=== PATIENT | male | born 1965 | race Caucasian/White ===

== ENCOUNTER 2021-01-17 14:25 | Emergency (ER) | payer BC ==
[2021-01-17] MEDS: Ketorolac 30 MG/ML SDV IVPUSH ONE (15:24)
--- NOTE | 2021-01-17 15:34 | EDM.PDOC ---
ED HPI GENERAL MEDICAL PROBLEM - General Chief Complaint: Back Pain or Injury Stated Complaint: pain fell from ladder Time Seen by Provider: 01/17/21 14:56 Source of Information: Reports: Patient History Limitations: Reports: No Limitations - History of Present Illness INITIAL COMMENTS - FREE TEXT/NARRATIVE: 55-year-old male presents to the ED complaining of dizzy lightheadedness, falls, neck pain, back pain. Patient had a fall from a ladder approximately 7 feet up on Monday, patient states there was no loss of consciousness. But he did see stars. Followed by nausea. Patient believes he was on the ground for approximately 4 to 5 minutes. He had difficulty in standing due to dizziness/rib pain which he rates as an 8/10 on the pain scale. Patient is positive for the following: Increasing sleep, inability to walk more than 20 feet without getting dizzy lightheaded, multiple falls controlled, numbness and tingling in his right hand, pain in his right wrist. Negative for: Shortness of breath, headache, blurred vision, diarrhea/constipation, blood in the stool. 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 Denies: Ear Pain, Hearing Loss, Vision Change Respiratory: Reports: Other (Extreme pain on the left side posterior chest wall when patient moves, coughs, sneezes.) Cardiovascular: Reports: Chest Pain (Chest wall pain) Endocrine: Reports: No Symptoms GI/Abdominal: Reports: Abdominal Pain, Nausea, Vomiting : Reports: No Symptoms Musculoskeletal: Reports: Back Pain, Other (Numbness and tingling right hand left hand/wrist is sore) Skin: Reports: No Symptoms, Other Neurological: Reports: Dizziness, Paresthesia (Right hand), Tingling (Right hand CK yes please okay) Psychiatric: Reports: No Symptoms Hematologic/Lymphatic: Reports: No Symptoms Immunologic: Reports: No Symptoms ED EXAM, UPPER BACK/NECK PAIN - Physical Exam Exam: See Below Text/Narrative:: 55-year-old male lying semi-Fowlers in ED stretcher trauma bay 1. Patient is alert and oriented 3/3 GCS 4 5 6, skin warm, dry, nonpallor, dirty/unhygienic. Patient speaking in full sentences. Exam Limited By: No Limitations General Appearance: Alert, WD/WN, Moderate Distress Eye Exam: Bilateral Eye: EOMI, Normal Inspection, PERRL Ears Exam: Normal External Exam, Hearing Grossly Normal, Other (Negative for discharge, jewell sign) Nose Exam: Normal Inspection, No Blood Throat/Mouth Exam: Normal Inspection, Normal Lips, Normal Oropharynx, Normal Voice, No Airway Compromise, Dental Decay. No: Normal Teeth (Extremely poor dentition) Head Exam: Atraumatic, Normocephalic, Other (No pain on palpation, no deformity) Neck Exam: Limited Range of Motion, Spinous Processes Tender (Approximately the C6-C7), Stiff Neck, Tenderness, Tender Midline. 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) Neurologic: instructor nurse II-XII nml As Tested, No Motor/Sensory Deficits, Alert, Normal Mood/Affect, Oriented x 3 Psychiatric: Normal Affect, Normal Mood Skin Exam: Other (See above) #1 Interpretation EKG Date: 01/17/21 Course - Vital Signs Last Recorded V/S: Last Vital Signs Temp 97 F 01/17/21 17:55 Pulse 95 01/17/21 18:02 Resp 18 01/17/21 17:55 BP 118/69 01/17/21 18:02 Pulse Ox 98 01/17/21 17:55 - Orders/Labs/Meds Labs: Laboratory Tests 01/17/21 01/17/21 01/17/21 Range/Units 15:20 16:09 16:10 WBC 10.8 (4.0-11.0) K/uL RBC 3.20 L (4.50-6.50) M/uL Hgb 10.5 L (13.0-18.0) g/dL Hct 29.9 L (40.0-54.0) % MCV 93 (76-96) fL MCH 32.8 H (27.0-32.0) pg MCHC 35.1 H (31.0-35.0) g/dL RDW 11.8 (11.0-16.0) % Plt Count 323 (150-400) K/uL MPV 9.9 (6.0-10.0) fL Neut % (Auto) 76.3 H (45.0-70.0) % Lymph % (Auto) 14.6 L (20.0-40.0) % [place] % (Auto) 7.4 (3.0-10.0) % Eos % (Auto) 1.2 (1.0-5.0) % Baso % (Auto) 0.5 (0.0-0.5) % Neut # (Auto) 8.24 H (2.00-7.50) K/uL Lymph # (Auto) 1.57 (1.50-4.00) K/uL [place] # (Auto) 0.80 (0.20-0.80) K/uL Eos # (Auto) 0.13 (0.04-0.40) K/uL Baso # (Auto) 0.05 (0.02-0.10) K/uL Sodium 135 L (136-145) mmol/L Potassium 4.9 (3.5-5.1) mmol/L Chloride 99 (98-107) mmol/L Carbon Dioxide 30.2 (21.0-32.0) mmol/L Anion Gap 10.7 (5.0-15.0) mmol/L BUN 33 H (8-26) mg/dL Creatinine 1.15 (0.70-1.30) mg/dL Est Cr Clr Drug Dosing TNP Estimated GFR (MDRD) > 60 (>60) MLS/MIN BUN/Creatinine Ratio 28.7 H (6-25) Glucose 375 H (74-100) mg/dL Calcium 9.1 (8.5-10.1) mg/dL Total Bilirubin 1.7 H (0.0-1.0) mg/dL AST 12 L (15-37) U/L ALT 23 (12-78) U/L Alkaline Phosphatase 90 (46-116) U/L Creatine Kinase 153 (21-232) U/L Total Protein 6.9 (6.4-8.2) g/dL Albumin 3.7 (3.4-5.0) g/dL Globulin 3.2 (2.2-4.2) g/dL Albumin/Globulin Ratio 1.2 (0.8-2.0) SARS-CoV-2 RNA (KYLEIGH) (NEGATIVE) Blood Type O POSITIVE Gel Antibody Screen Negative 01/17/21 Range/Units 16:55 WBC (4.0-11.0) K/uL RBC (4.50-6.50) M/uL Hgb (13.0-18.0) g/dL Hct (40.0-54.0) % MCV (76-96) fL MCH (27.0-32.0) pg MCHC (31.0-35.0) g/dL RDW (11.0-16.0) % Plt Count (150-400) K/uL MPV (6.0-10.0) fL Neut % (Auto) (45.0-70.0) % Lymph % (Auto) (20.0-40.0) % [place] % (Auto) (3.0-10.0) % Eos % (Auto) (1.0-5.0) % Baso % (Auto) (0.0-0.5) % Neut # (Auto) (2.00-7.50) K/uL Lymph # (Auto) (1.50-4.00) K/uL [place] # (Auto) (0.20-0.80) K/uL Eos # (Auto) (0.04-0.40) K/uL Baso # (Auto) (0.02-0.10) K/uL Sodium (136-145) mmol/L Potassium (3.5-5.1) mmol/L Chloride (98-107) mmol/L Carbon Dioxide (21.0-32.0) mmol/L Anion Gap (5.0-15.0) mmol/L BUN (8-26) mg/dL Creatinine (0.70-1.30) mg/dL Est Cr Clr Drug Dosing Estimated GFR (MDRD) (>60) MLS/MIN BUN/Creatinine Ratio (6-25) Glucose (74-100) mg/dL Calcium (8.5-10.1) mg/dL Total Bilirubin (0.0-1.0) mg/dL AST (15-37) U/L ALT (12-78) U/L Alkaline Phosphatase (46-116) U/L Creatine Kinase (21-232) U/L Total Protein (6.4-8.2) g/dL Albumin (3.4-5.0) g/dL Globulin (2.2-4.2) g/dL Albumin/Globulin Ratio (0.8-2.0) SARS-CoV-2 RNA (KYLEIGH) Negative (NEGATIVE) Blood Type Gel Antibody Screen Meds: Medications Discontinued Medications Generic Name Dose Route Start Last Admin Trade Name Freq PRN Reason Stop Dose Admin Sodium Chloride 1,000 mls @ 500 mls/hr 01/17/21 16:31 01/17/21 16:35 Normal Saline IV 01/17/21 18:30 500 mls/hr .BOLUS ONE Administration Ketorolac Tromethamine 30 mg 01/17/21 15:07 01/17/21 15:24 Ketorolac 30 Mg/Ml Sdv IVPUSH 01/17/21 15:08 30 mg ONETIME ONE Administration Magnesium Citrate 296 ml 01/17/21 15:18 01/17/21 16:05 Magnesium Citrate Solution 296 Ml Bottle PO 01/17/21 15:19 Not Given ONETIME ONE Morphine Sulfate 4 mg 01/17/21 16:36 01/17/21 16:38 Morphine 4 Mg/Ml Vial IVPUSH 01/17/21 16:37 4 mg ONETIME ONE Administration Morphine Sulfate Confirm 01/17/21 16:48 01/17/21 17:02 Morphine 4 Mg/Ml Vial Administered 09/26/21 16:49 Not Given Dose 4 mg .ROUTE .STK-MED ONE Morphine Sulfate 4 mg 01/17/21 18:06 01/17/21 18:08 Morphine 4 Mg/Ml Vial IVPUSH 01/17/21 18:07 4 mg ONETIME ONE Administration Morphine Sulfate Confirm 01/17/21 18:18 01/17/21 18:25 Morphine 4 Mg/Ml Vial Administered 01/17/21 18:19 Not Given Dose 4 mg .ROUTE .STK-MED ONE Departure - Departure Time of Disposition: 18:05 Disposition: DC/Tfer to Acute Hospital 02 Condition: Fair Clinical Impression: Traumatic rupture of spleen - Discharge Information *PRESCRIPTION DRUG MONITORING PROGRAM REVIEWED*: No *COPY OF PRESCRIPTION DRUG MONITORING REPORT IN PATIENT EWA: No Referrals: PCP,Unknown [Primary Care Provider] - Forms: ED Department Discharge, Interfacility Transfer REJI Sepsis Event Note (ED) - Evaluation Sepsis Screening Result: No Definite Risk - Assessment/Plan Assessment:: Assessment and plan: Based on patient's symptoms/history patient was sent to CAT scan for head, cervical, chest and abdomen. CT of the head: Impression was no acute intracranial abnormality CT of the cervical spine: Impression degenerative changes no cervical fracture CT of the chest: Impression nondisplaced left lateral sixth rib fracture commuted displaced left lateral seventh rib fracture. Minimally displaced left lateral eighth rib fracture. Commuted displaced posterior left ninth rib fracture. Minimal displaced posterior left 10th rib fracture. The 11th and 12th ribs are not completely imaged on the study. Discussed small left pleural effusion. Mild opacities in the lingula and both lower lobes may represent atelectasis and/or contusions and a 7 mm pulmonary nodule in the lower right lobe. CT of the abdomen: Impression hemoperitoneum measuring 15 x 6 cm adjacent to the spleen consistent with significant splenic injury. Recommend repeated study with IV contrast, patient to be transferred to appropriate facility CT with IV contrast to be deferred. Moderate hemoperitoneum in the abdomen adjacent to the liver. Based on imaging patient is a surgical candidate for trauma team, I reached out personally to [facility] made contact with Dr. Arias of the ED who agreed to accept this patient for splenic rupture and hemoperitoneum. Facility staff reach out to [facility], we were notified that there is going to be a slight delay in dispatching their unit due to a agricultural aircraft pilot staffing issue which delayed initiation of their mission by approximately 10 minutes. Patient was made aware of the necessity of surgical intervention and the need to be transferred to a facility capable of handling his condition, patient understood and agreed to the plan. Patient remained slightly tachycardic for which we started a normal saline bolus to be administered while in the ER and during transport. Patient will be discharged from our facility.
[2021-01-17] MEDS: Magnesium Citrate Solution 296 ML Bottle PO ONE (16:05)
[2021-01-17] MEDS: Sodium Chloride 0.9% 1,000 ML IV ONE (16:35)
[2021-01-17] MEDS: Morphine 4 MG/ML VIAL IVPUSH ONE ×2 (16:38→18:08)
[2021-01-17] MEDS: Morphine 4 MG/ML VIAL ONE ×2 (17:02→18:25)
--- NOTE | 2021-01-18 09:43 | CT ---
DATE OF SERVICE: 01/17/21 CLINICAL DATA: Dizzy lightheaded, falls, numbness and tingling UNENHANCED BRAIN CT: Multislice acquisition through the brain without IV contrast was performed. No priors. No masses or mass effect. No intracranial hemorrhage. No evidence of acute or subacute infarct. No osseous abnormalities. IMPRESSION: No acute intracranial abnormalities. [id number] [facility]
--- NOTE | 2021-01-18 09:48 | CT ---
DATE OF SERVICE: 01/17/21 CLINICAL DATA: Numbness and tingling, falls, dizzy lightheaded CERVICAL SPINE CT: Multislice axial acquisition without IV contrast was performed. Axial images and sagittal and coronal reformations are reviewed. There is reversal of the normal cervical lordosis on the lateral view. This is most likely positional or due to muscle spasm. The vertebral bodies are of average height. No acute fracture or dislocation. There are disc margin spurs at multiple levels with disc space narrowing at the C5-6, C6-7, and C7-T1 levels. There is facet joint hypertrophy throughout the cervical spine. There are degenerative changes involving the atlantoaxial articulation. The soft tissues are unremarkable. IMPRESSION: No acute abnormality. [id number] [facility]
--- NOTE | 2021-01-18 09:51 | CR ---
DATE OF SERVICE: 01/17/21 CLINICAL DATA: hand and wrist pain LEFT HAND: No acute fracture or dislocation. No lytic or blastic bone lesions. RIGHT HAND: No acute fracture or dislocation. No lytic or blastic bone lesions. [id number] [facility]
--- NOTE | 2021-01-18 12:37 | CT ---
Date of Service: 01/17/21 Clinical Data: Dizzy lightheaded, chest pain UNENHANCED CHEST CT: Multislice acquisition through the chest without IV contrast was performed. No priors. There are atelectatic changes in the dependent portion of both lungs with areas of atelectasis and consolidation in the left lung base. Considering the patient's clinical history, pulmonary contusion should be considered. There is a 7 mm subpleural nodule in the right lung base. Followup imaging is recommended. There is a small left pleural effusion. No left pneumothorax. The heart size is normal. There are minimal coronary artery calcifications. No pericardial effusion. No aortic aneurysm. There are fractures through the left 7th, 8th, 9th, and 10th ribs posteriorly. There is a questionable fracture through the left 6th rib posteriorly. There are healed rib fractures on the right. No other displaced acute fractures. The patient's physician was notified of the findings by [facility] [employer] preliminary radiology report. [id number] [facility]
--- NOTE | 2021-01-18 12:44 | CT ---
Date of Service: 01/17/21 Clinical Data: Abdominal pain secondary to trauma UNENHANCED ABDOMEN CT: Multislice acquisition through the abdomen without IV or oral contrast was performed. No priors. Again noted is the atelectasis and consolidation in the left lung base with a small left pleural effusion. There are multiple left rib fractures. The spleen is abnormal. It has heterogeneous attenuation and there is significant hyperdense fluid adjacent to it consistent with hemoperitoneum. Splenic fracture or laceration is suspected. The liver is normal size with homogeneous attenuation. There is hyperdense fluid adjacent to the liver consistent with hemoperitoneum. The gallbladder appears normal. The pancreas appears normal. The right and left adrenals appear normal. the right and left kidneys appear normal. No nephrocalcinosis or nephrolithiasis. No hydronephrosis or hydroureter. No free air. No dilated loops of bowel. No adenopathy. No aortic aneurysm. Multiple acute left rib fractures. IMPRESSION: Abnormal exam. See above. The patient's physician was notified of the findings by telephone and by [facility] preliminary radiology report. [id number] [facility]
== END 2021-01-17 18:40 ==
LOC: LB.ED 14:25
DX: S36.09XA Other injury of spleen, initial encounter (principal); M54.6 Pain in thoracic spine; Z20.822 Contact with and (suspected) exposure to COVID-19; I10 Essential (primary) hypertension; E11.9 Type 2 diabetes mellitus without complications; Z79.84 Long term (current) use of oral hypoglycemic drugs; Z79.899 Other long term (current) drug therapy; W11.XXXA Fall on and from ladder, initial encounter
CPT/HCPCS: 36415; 70450; 71250; 72125; 73120-50; 74150; 80053; 82550; 85025; 86850; 86900; 86901; 93005; 96374; 96375; 96376; 99285-25; A0425; A0429; J1885; J2270; J7030; U0002